=== PATIENT | male | born 1930 | race Hispanic/Latino ===

== ENCOUNTER → 2019-03-22 | Outpatient (CLI) | payer OTHER ==
[~2019-03-22] MED LIST: ALEN70TA10 PO; ASPI-555 PO; ATOR40TA69 PO; CALC-190 PO; CLOP75TA14 PO; ENAL10TA PO; GLIP1TAB6 PO; METO25 PO; TAMS-1 PO
== END | disposition home or self-care (01) ==
LOC: SHCH 07:48
PROVIDERS: ATTEND Internal Medicine Cardiovascular Disease
DX: I65.23 Occlusion and stenosis of bilateral carotid arteries (principal)
CPT/HCPCS: 93880

== ENCOUNTER → 2019-04-01 | Outpatient (CLI) | payer OTHER ==
[2019-04-01 17:31] LABS: BASOPHILS % (AUTO) 0.7 % (0.0-5.0); EOSINOPHILS % (AUTO) 2.2 % (0.0-8.0); HEMATOCRIT 36.4 % (42-54); LYMPHOCYTES % (AUTO) 24.8 % (21.0-51.0); MEAN CORPUSCULAR HEMOGLOBIN 29.8 pg (27.0-33.0); MEAN CORPUSCULAR HGB CONC 31.9 g/dL (32.0-36.0); MEAN CORPUSCULAR VOLUME 93.6 fL (79-99); MONOCYTES % (AUTO) 9.2 % (3.0-13.0); NEUTROPHILS % (AUTO) 62.9 % (40.0-77.0); PLATELET COUNT (AUTO) 176 K/uL (130-400); RED BLOOD CELL COUNT(AUTO) 3.89 MIL/uL (4.50-6.20); RED CELL DISTRIBUTION WIDTH 12.7 % (11.0-15.5); WHITE BLOOD COUNT (AUTO) 8.2 K/uL (4.8-10.8)
== END | disposition home or self-care (01) ==
LOC: LAB 17:03
PROVIDERS: ATTEND Internal Medicine
DX: K92.2 Gastrointestinal hemorrhage, unspecified (principal)
CPT/HCPCS: 36415; 83630; 85025; 87046; 87177; 87324

== ENCOUNTER → 2019-04-27 | Outpatient (CLI) | payer OTHER ==
[~2019-04-27] MED LIST changes: -ENAL10TA PO
[2019-04-27 15:48] LABS: CREATININE 1.5 mg/dL (0.5-1.5); POTASSIUM 5.2 mmol/L (3.5-5.1)
== END | disposition home or self-care (01) ==
LOC: LAB 14:52
PROVIDERS: ATTEND Thoracic Surgery (Cardiothoracic Vascular Surgery)
DX: I25.10 Atherosclerotic heart disease of native coronary artery without angina pectoris (principal)
CPT/HCPCS: 36415; 80048

== ENCOUNTER 2019-06-18 08:14 | Day surgery (SDC) | payer OTHER ==
[2019-06-17 17:10] LABS: BASOPHILS % (AUTO) 1.2 % (0.0-5.0); EOSINOPHILS % (AUTO) 7.2 % (0.0-8.0); LYMPHOCYTES % (AUTO) 34.2 % (21.0-51.0); MEAN CORPUSCULAR HEMOGLOBIN 27.4 pg (27.0-33.0); MEAN CORPUSCULAR HGB CONC 30.9 g/dL (32.0-36.0); MEAN CORPUSCULAR VOLUME 88.8 fL (79-99); MONOCYTES % (AUTO) 9.3 % (3.0-13.0); NEUTROPHILS % (AUTO) 47.8 % (40.0-77.0); PLATELET COUNT (AUTO) 309 K/uL (130-400); RED BLOOD CELL COUNT(AUTO) 3.94 MIL/uL (4.50-6.20); WHITE BLOOD COUNT (AUTO) 7.6 K/uL (4.8-10.8)
[2019-06-17 17:25] LABS: INR 1.07 (0.85-1.15); PARTIAL THROMBOPLASTIN TIME 25.3 SEC (26.3-35.5); PROTHROMBIN TIME 11.5 SEC (9.6-11.6)
[2019-06-17 17:27] LABS: ALBUMIN 2.7 g/dL (3.5-5.0); BILIRUBIN,TOTAL 0.1 mg/dL (0.2-1.0); CREATININE 1.3 mg/dL (0.5-1.5); POTASSIUM 3.9 mmol/L (3.5-5.1); TOTAL PROTEIN, SERUM 8.4 g/dL (6.0-8.3)
[2019-06-17 17:29] LABS: HEMOGLOBIN A1C 7.8 % (4.0-6.0)
--- NOTE | 2019-06-17 17:31 | NUR ---
LABS ABNORMAL LABS REPORTED TO DR. DOMINGUEZ MESSAGE LEFT WITH MANSI UMANZOR , NO FURTHER ORDERS
[~2019-06-18] VITALS: Ht 162.6 cm; Wt 65.0 kg
[2019-06-18] VITALS (19 sets, daily range): BP systolic 128–176; BP diastolic 65–92
[~2019-06-18 08:14] MED LIST changes: -ALEN70TA10 PO; +AMOX500C2 PO; -ASPI-555 PO; +ASPI-556 PO; -ATOR40TA69 PO; +ATOR40TA71 PO; -CALC-190 PO; +CEFUROXIME SODIUM 1.5 GM VIAL IVP SCH; +FLUO20TA29 PO; +FURO20TA4 PO; -GLIP1TAB6 PO; +INSU100I26 SQ; +INSU200I SQ; -METO25 PO; +POTA20TA82 PO; +calcium carb/vit d3 PO
--- NOTE | 2019-06-18 09:20 | NUR ---
patient arrived with incision to chest area, covered.
[2019-06-18] MEDS ORDERED: SODIUM CHLORIDE 0.9% 1000ML 1,000 ML IV ONE (10:19)
[2019-06-18] MEDS ORDERED: LIDOCAINE PF 2% 5ML ABBOJECT ONE (14:41)
[2019-06-18] MEDS ORDERED: SUCCINYLCHOLINE CHLORIDE 20 MG/ML 10 ML VIAL ONE (14:41)
[2019-06-18] MEDS ORDERED: MIDAZOLAM HCL 1 MG/ML 2ML VIAL ONE (14:42)
[2019-06-18] MEDS ORDERED: PROPOFOL 10 MG/ML 20ML VIAL IV ONE (14:42)
[2019-06-18] MEDS ORDERED: ROCURONIUM 10MG/1ML SYR 10 MG/ML ML ONE (14:42)
[2019-06-18] MEDS ORDERED: CEFAZOLIN SODIUM 1 GM VIAL ONE ×2 (14:49→14:50)
[2019-06-18] MEDS ORDERED: FENTANYL CITRATE PF 50 MCG/1 ML 2ML VIAL ONE (14:49)
[2019-06-18] MEDS ORDERED: ONDANSETRON HCL 4 MG/2 ML VIAL ONE (15:11)
--- NOTE | 2019-06-18 15:18 | NUR ---
DC PLAN GOT ORDER FOR WOUND VAC FROM DR. DOMINGUEZ. CALLED NUMBER ON FACE SHEET FOR PERSON TO CONTACT. DAUGHTER SAID PATIENT CURRENTLY WITH [facility]. GOT TELEPHONE CONSENT TO SPEAK TO [facility]. SPOKE TO [place] SAID WE WOULD HAVE TO ORDER THE WOUND VAC IF PATIENT WENT HOME WITH WET TO DRY DRESSINGS THEN THEY WILL NEED AN ORDER FOR THE NURSE. GOT FORMS WENT TO PACU. SPOKE TO MANSI GAVE HER OPTIONS. SAID DR. DOMINGUEZ CHANGED PLAN SAID WILL CLOSE WOUND AND WILL GO HOME WITH TERRY. ASKED IF WANTED ORDER FOR HOME HEALTH TO REMOVE [employer] DRESSING IN [address] DOMINGUEZ COULD SIGN IT SAID NO. DID NOT NEED.
[2019-06-18] MEDS ORDERED: HYDRALAZINE HCL 20 MG/ML VIAL ONE (15:51)
--- NOTE | 2019-06-18 16:11 | NUR ---
REPORT RECEIVED REPORT FROM GUERA MEYERS RN. PT WILL REQUIRE HOME HEALTH SERVICES. Addendum: 06/18/19 at 1614 by SHELIA BARRERA RN RN NURSE REPORT PT HAS TWO STAINS TO DRESSING AND AWARE.
--- NOTE | 2019-06-18 16:35 | NUR ---
transfer received pt post op. pt has julio dressing to chest with blood stain times two outlined with marker and md aware as per abhi mason rn. pt in no distress at this time. call light with in reach Addendum: 06/18/19 at 1658 by SHELIA BARRERA RN RN Amended: Links added.
--- NOTE | 2019-06-18 17:30 | NUR ---
DRESSING JARETT RN FROM OR AND JONATHAN RIVERA RN CHANGING TERRY DRESSING DUE TO ORANGE LIGHT FLICKERING AND MACHINE NOT SUCTIONING CORRECTLY.
--- NOTE | 2019-06-18 17:35 | NUR ---
DISCHARGE PT TAKEN OUT VIA W/C IN NO DISTRESS. DAUGHTER AT SIDE WITH PT. TERRY DRESSING WORKING CORRECTLY
== END 2019-06-18 17:35 | disposition home or self-care (01) ==
LOC: DAH 08:14
PROVIDERS: ATTEND Thoracic Surgery (Cardiothoracic Vascular Surgery)
DX: Z47.2 Encounter for removal of internal fixation device (principal); T84.89XA Other specified complication of internal orthopedic prosthetic devices, implants and grafts, initial encounter; E78.5 Hyperlipidemia, unspecified; E03.9 Hypothyroidism, unspecified; E11.9 Type 2 diabetes mellitus without complications; I10 Essential (primary) hypertension; H91.90 Unspecified hearing loss, unspecified ear; Z95.1 Presence of aortocoronary bypass graft; Z79.01 Long term (current) use of anticoagulants; I25.10 Atherosclerotic heart disease of native coronary artery without angina pectoris; I25.2 Old myocardial infarction; Y83.8 Other surgical procedures as the cause of abnormal reaction of the patient, or of later complication, without mention of misadventure at the time of the procedure; Z79.82 Long term (current) use of aspirin; Z79.899 Other long term (current) drug therapy
CPT/HCPCS: 20680; 36415; 71045; 80053; 82948 ×2; 83036; 85025; 85610; 85730; 93005; A4215; A4221; A4222; A4223; A4649; A4663; A4930 ×2; A9272; C1713 ×2; J0330; J0360; J0690; J0697; J2001; J2405; J2704; J3010; J7030; J7120; J2250

== ENCOUNTER → 2019-09-01 | Outpatient (CLI) | payer OTHER ==
[~2019-09-01] MED LIST changes: -CEFUROXIME SODIUM 1.5 GM VIAL IVP SCH
== END | disposition home or self-care (01) ==
LOC: OIH 14:42
PROVIDERS: ATTEND Thoracic Surgery (Cardiothoracic Vascular Surgery)
DX: T81.89XA Other complications of procedures, not elsewhere classified, initial encounter (principal); M47.814 Spondylosis without myelopathy or radiculopathy, thoracic region; I71.9 Aortic aneurysm of unspecified site, without rupture
CPT/HCPCS: 71046

== ENCOUNTER → 2020-03-30 | Outpatient (CLI) | payer OTHER | END | disposition home or self-care (01) | LOC: SHCH 12:34 | PROVIDERS: ATTEND Internal Medicine Cardiovascular Disease | DX: I65.23 Occlusion and stenosis of bilateral carotid arteries (principal); I25.10 Atherosclerotic heart disease of native coronary artery without angina pectoris | CPT/HCPCS: 93880 ==